=== PATIENT | male | born 1955 | race African-American/Black ===

== ENCOUNTER 2019-01-01 08:32 | Observation (INO) | payer BC ==
[2019-01-01] MEDS ORDERED: NA CHLORIDE 0.9% 1,000 ML ONE (09:12)
[2019-01-01] MEDS ORDERED: ONDANSETRON 4 MG/2 ML VIAL ONE (09:12)
[2019-01-01 09:32] LABS: Absolute Lymphocytes (CBC) 0.6 K/uL (0.7-4.9); Absolute Monocytes 0.4 K/uL (0.1-1.3); Basophils % 0.4 % (0-1.3); Eosinophils % 2.6 % (0-4.4); Hematocrit 43.6 % (39.6-49.0); Lymphocytes % 11.9 % (15.3-44.8); MPV 9.4 fL (7.6-11.3); Monocytes % 8.1 % (3.3-12.3); RBC Red Blood Cell Count 5.27 M/uL (4.33-5.43)
[2019-01-01 09:42] LABS: Protime INR 1.07
--- NOTE | 2019-01-01 09:46 | RAD REPORT ---
EXAM DESCRIPTION: CT - Stone Protocol - 01/01/2019 9:18 am CLINICAL HISTORY: Flank pain. FLANK PAIN COMPARISON: No comparisons TECHNIQUE: Axial images were obtained without oral or IV contrast. Lack of contrast limits solid org an and vascular assessment. The [id number] spans the entirety of the system partially obscuring uppermost abdomen and lung bases. Coronal reformatted images were obtained and reviewed. All CT scans are performed using dose optimization technique as appropriate and may include automated exposure control or mA/KV adjustment according to patient size. FINDINGS: The lower lung baires are clear. Small hiatal hernia. Imaged portions of the liver and spleen show no suspicious findings on non-contrast imaging. The panc reas and adrenal glands are normal. No pathologic lymphadenopathy in the abdomen or pelvis. Bilateral nephrolithiasis is present without hydronephrosis. No bowel obstruction, free air, free fluid or abscess. Normal appendix noted. No significant bony abnormality. Moderate lower lumbar degenerative changes. IMPRESSION: Bilateral nephrolithiasis without hydronephrosis.
[2019-01-01 09:51] LABS: ALT/SGPT 73 U/L (12-78); AST/SGOT 49 U/L (15-37); Albumin 3.8 g/dL (3.4-5.0); Alkaline Phosphatase 68 U/L (45-117); BUN Blood Urea Nitrogen 20 mg/dL (7-18); Bicarbonate 27 mmol/L (21-32); Bilirubin Direct 0.2 mg/dL (0-0.2); Bilirubin Total 0.8 mg/dL (0.2-1.0); Glucose Level 134 mg/dL (74-106); Lipase 183 U/L (73-393); Magnesium 1.8 mg/dL (1.8-2.4); NT PRO-BNP 691 pg/mL (<125); Potassium 4.4 mmol/L (3.5-5.1); Protein, Total 7.4 g/dL (6.4-8.2); Sodium Level 141 mmol/L (136-145); Troponin (Emerg Dept Use Only) < 0.02 ng/mL (0.0-0.045)
--- NOTE | 2019-01-01 10:35 | ER ---
Nurse's Notes [facility] Name: Toby Bella Age: 63 yrs Sex: Male : 1955 Arrival Date: 01/01/2019 Time: 08:35 Bed 20 Private MD: Diagnosis: Vomiting;Abdominal tenderness;Headache;Essential (primary) hypertension;Unspecified combined systolic (congestive) and diastolic (congestive) heart failure;Unspecified kidney failure;Atrial fibrillation and flutter Presentation: 01/01 08:36 Presenting complaint: EMS states: Headache, body aches, sinus congestion, and hb productive cough with yellow sputum. On scene pt was diaphoretic, c/o dizziness, body aches, and right flank pain that radiates to right leg. VAN NEG. 161/94, HR 88, 97% on RA, BGL 130. Transition of care: patient was not received from another setting of care. Onset of symptoms was January 01, 2019. Risk Assessment: Do you want to hurt yourself or someone else? Patient reports no desire to harm self or others. Care prior to arrival: None. 08:36 Method Of Arrival: EMS: [facility] 08:36 Acuity: PRASAD 3 hb 08:50 Initial Sepsis Screen: Does the patient meet any 2 criteria? No. Patient's initial em sepsis screen is negative. Does the patient have a suspected source of infection? No. Patient's initial sepsis screen is negative. Historical: - Allergies: 08:40 Iodinated Contrast Media - IV Dye; hb - PMHx: 08:40 Hyperlipidemia; Diabetes - NIDDM; Hypertension; Peripheral Neuropathy; hb - Immunization history:: Adult Immunizations up to date. - Social history:: Smoking status: Patient/guardian denies using tobacco. - Ebola Screening: : No symptoms or risks identified at this time. - Family history:: not pertinent. Screenin:50 Abuse screen: Denies threats or abuse. Nutritional screening: No deficits noted. em Tuberculosis screening: No symptoms or risk factors identified. Fall Risk None identified. Assessment: 08:50 General: Appears in no apparent distress. uncomfortable, Behavior is calm, cooperative, em Denies fever. Pain: Complains of pain in posterior aspect of right lateral abdomen and anterior aspect of right lateral abdomen Pain currently is 7 out of 10 on a pain scale. Pain began 1 hour ago. Neuro: Level of Consciousness is awake, alert, obeys commands, Oriented to person, place, time, situation, Moves all extremities. Gait is steady, Speech is normal, Intact Reports dizziness, headache Denies weakness. Cardiovascular: Denies chest pain, shortness of breath, Heart tones S1 S2 present Capillary refill < 3 seconds Patient's skin is warm and dry. Rhythm is atrial fibrillation. Respiratory: Reports cough that is dry, Airway is patent Respiratory effort is even, unlabored, Respiratory pattern is regular, symmetrical, Breath sounds are clear bilaterally. GI: Abdomen is round non-distended, Bowel sounds present X 4 quads. Abd is soft X 4 quads Abdomen is tender to palpation in right upper quadrant and right lower quadrant Reports diarrhea, nausea, vomiting. : Denies burning with urination. Derm: Skin is intact, is healthy with good turgor, Skin is pink, warm \T\ dry. Musculoskeletal: Capillary refill < 3 seconds, Range of motion: intact in all extremities. 09:05 Reassessment: I agree with previous assessment. hb 09:42 Reassessment: Patient appears in no apparent distress at this time. Patient and/or em family updated on plan of care and expected duration. Pain level reassessed. Patient is alert, oriented x 3, equal unlabored respirations, skin warm/dry/pink. Patient states symptoms have improved. 10:32 Reassessment: pt report he does not want to take aspirin as ordered due to nose bleeds, em provider notified. 10:55 Reassessment: pt up for discharge, provider ordered head CT due to pt headache. em 12:20 Reassessment: Patient appears in no apparent distress at this time. Patient and/or em family updated on plan of care and expected duration. Pain level reassessed. Patient is alert, oriented x 3, equal unlabored respirations, skin warm/dry/pink. Dr. Dominguez at bedside. 13:02 Reassessment: Patient appears in no apparent distress at this time. Patient and/or em family updated on plan of care and expected duration. Pain level reassessed. Patient is alert, oriented x 3, equal unlabored respirations, skin warm/dry/pink. rates pain 4/10 in head Patient states feeling better. 13:25 Reassessment: nurse attempted to give report but was called by a DrAugusta for a procedure, em will attempt to give report later. Vital Signs: 08:38 BP 149 / 94; Pulse 93; Resp 20; Temp 98.4(TE); Pulse Ox 96% on R/A; Pain 7/10; hb 09:45 BP 123 / 87; Pulse 89; Resp 18; Pulse Ox 99% on R/A; em 11:00 BP 115 / 70; Pulse 88; Resp 16; Pulse Ox 98% on R/A; Pain 7/10; em 12:00 BP 146 / 87; Pulse 95; Resp 18; Pulse Ox 99% on R/A; em 13:03 BP 120 / 84; Pulse 97; Resp 18; Pulse Ox 99% on R/A; Pain 4/10; em ED Course: 08:35 Patient arrived in ED. hb 08:37 Leon Donato MD is Attending Physician. diomedes 08:38 Triage completed. hb 08:39 Arm band placed on. hb 08:42 Antolin Augustin LVN is Primary Nurse. em 08:50 Patient has correct armband on for positive identification. Bed in low position. Call em light in reach. Adult w/ patient. youth nutritional monitor on. Pulse ox on. NIBP on. 09:00 Initial lab(s) drawn, by me, sent to lab. Inserted saline lock: 22 gauge in right em antecubital area, using aseptic technique. Blood collected. 09:[address] bq 09:17 CT completed. Patient tolerated procedure well. Patient moved back from CT. mw3 09:19 CT Stone Protocol In Process Unspecified. EDMS 09:24 XRAY Chest (1 view) In Process Unspecified. EDMS 10:34 Ortiz Watkins MD is Referral Physician. diomedes 11:14 Head Brain Wo Cont CT In Process Unspecified. EDMS 11:14 CT completed. Patient tolerated procedure well. Patient moved back from CT. mw3 11:40 Angel Dominguez DO is Hospitalizing Provider. diomedes 13:50 No provider procedures requiring assistance completed. Patient admitted, IV remains in em place. Administered Medications: 09:13 Drug: NS 0.9% 500 ml Route: IV; Rate: bolus; Site: right antecubital; em 10:43 Follow up: IV Status: Completed infusion; IV Intake: 500ml em 09:13 Drug: NS 0.9% 1000 ml Route: IV; Rate: 125 ml/hr; Site: right antecubital; em 13:50 Follow up: IV Status: Infusion continued upon admission; IV Intake: 400ml em 09:13 Drug: Zofran 4 mg Route: IVP; Site: right antecubital; la1 10:43 Follow up: Response: No adverse reaction; Nausea is decreased em 10:42 Not Given (Patient Refused): Aspirin 81 mg PO once em Intake: 10:43 IV: 500ml; Total: 500ml. em 13:50 IV: 400ml; Total: 900ml. em Outcome: 10:34 Discharge ordered by . diomedes 11:43 Decision to Hospitalize by Provider. [facility] 13:51 Admitted to Tele accompanied by tech, via wheelchair, room 216, with chart, Report em called to MOHSEN Hernandez 13:51 Condition: good 13:51 Instructed on the need for admit, Demonstrated understanding of instructions. 13:53 Patient left the ED. em Signatures: Dispatcher [employer] EDMS Leon Donato MD MD cha Quilty, Betty bq Munoz, Edgar, OYSTER UNLOADER OYSTER UNLOADER em Moisés Scott RN RN la1 Yanet Arriola RN RN Zoie Perez mw3 Corrections: (The following items were deleted from the chart) 08:39 08:36 Presenting complaint: EMS states: Headache, body aches, sinus congestion, and hb productive cough with yellow sputum. On scene pt was diaphoretic, c/o dizziness, body aches, and right flank pain that radiates to right leg. VAN NEG hb
--- NOTE | 2019-01-01 10:35 | EDPHYS ---
Physician Documentation [facility] Name: Toby Bella Age: 63 yrs Sex: Male : 1955 Arrival Date: 01/01/2019 Time: 08:35 Bed 20 Private MD: ED Physician Leon Donato HPI: 01/01 08:59 This 63 yrs old Black Male presents to ER via EMS with complaints of Headache, Body diomedes Aches, Sinus Congestion. 08:59 The patient presents with abdominal pain in the right upper quadrant, right lower diomedes quadrant, abdominal distention in the upper abdomen, in the lower abdomen. Onset: The symptoms/episode began/occurred just prior to arrival, this morning. The patient presents to the emergency department with nausea, vomiting, diarrhea, abdominal pain, of the anterior aspect of right lateral abdomen, posterior aspect of right lateral abdomen, right upper quadrant and right lower quadrant. Onset: The symptoms/episode began/occurred just prior to arrival, this morning. Possible causes: unknown. The symptoms are aggravated by nothing. The symptoms are alleviated by nothing. Associated signs and symptoms: The patient has no apparent associated signs or symptoms. The symptoms do not radiate. Associated signs and symptoms: Pertinent positives: nausea, vomiting, and diarrhea, nausea and vomiting. Historical: - Allergies: 08:40 Iodinated Contrast Media - IV Dye; hb - PMHx: 08:40 Hyperlipidemia; Diabetes - NIDDM; Hypertension; Peripheral Neuropathy; hb - Immunization history:: Adult Immunizations up to date. - Social history:: Smoking status: Patient/guardian denies using tobacco. - Ebola Screening: : No symptoms or risks identified at this time. - Family history:: not pertinent. ROS: 08:59 Constitutional: Negative for fever, chills, and weight loss, Eyes: Negative for injury, diomedes pain, redness, and discharge, ENT: Negative for injury, pain, and discharge, Neck: Negative for injury, pain, and swelling, Cardiovascular: Negative for chest pain, palpitations, and edema, Respiratory: Negative for shortness of breath, cough, wheezing, and pleuritic chest pain, Back: Negative for injury and pain, : Negative for injury, bleeding, discharge, and swelling, MS/Extremity: Negative for injury and deformity, Skin: Negative for injury, rash, and discoloration, Neuro: Negative for headache, weakness, numbness, tingling, and seizure, Psych: Negative for depression, anxiety, suicide ideation, homicidal ideation, and hallucinations, Allergy/Immunology: Negative for hives, rash, and allergies, Endocrine: Negative for neck swelling, polydipsia, polyuria, polyphagia, and marked weight changes, Hematologic/Lymphatic: Negative for swollen nodes, abnormal bleeding, and unusual bruising. 08:59 Abdomen/GI: Positive for abdominal pain, nausea and vomiting, abdominal cramps, abdominal distension, of the anterior aspect of right lateral abdomen and posterior aspect of right lateral abdomen. Exam: 08:59 Constitutional: This is a well developed, well nourished patient who is awake, alert, diomedes and in no acute distress. Head/Face: Normocephalic, atraumatic. Eyes: Pupils equal round and reactive to light, extra-ocular motions intact. Lids and lashes normal. Conjunctiva and sclera are non-icteric and not injected. Cornea within normal limits. Periorbital areas with no swelling, redness, or edema. ENT: Nares patent. No nasal discharge, no septal abnormalities noted. Tympanic membranes are normal and external auditory canals are clear. Oropharynx with no redness, swelling, or masses, exudates, or evidence of obstruction, uvula midline. Mucous membranes moist. Neck: Trachea midline, no thyromegaly or masses palpated, and no cervical lymphadenopathy. Supple, full range of motion without nuchal rigidity, or vertebral point tenderness. No Meningismus. Chest/axilla: Normal chest wall appearance and motion. Nontender with no deformity. No lesions are appreciated. Cardiovascular: Regular rate and rhythm with a normal S1 and S2. No gallops, murmurs, or rubs. Normal PMI, no JVD. No pulse deficits. Respiratory: Lungs have equal breath sounds bilaterally, clear to auscultation and percussion. No rales, rhonchi or wheezes noted. No increased work of breathing, no retractions or nasal flaring. Back: No spinal tenderness. No costovertebral tenderness. Full range of motion. Male : Normal genitalia with no discharge or lesions. Skin: Warm, dry with normal turgor. Normal color with no rashes, no lesions, and no evidence of cellulitis. MS/ Extremity: Pulses equal, no cyanosis. Neurovascular intact. Full, normal range of motion. Neuro: Awake and alert, GCS 15, oriented to person, place, time, and situation. Cranial nerves II-XII grossly intact. Motor strength 5/5 in all extremities. Sensory grossly intact. Cerebellar exam normal. Normal gait. Psych: Awake, alert, with orientation to person, place and time. Behavior, mood, and affect are within normal limits. 08:59 Abdomen/GI: Inspection: abdomen appears normal, Bowel sounds: normal, Palpation: Liver: no appreciated palpable abnormalities, Hernia: not appreciated. Vital Signs: 08:38 BP 149 / 94; Pulse 93; Resp 20; Temp 98.4(TE); Pulse Ox 96% on R/A; Pain 7/10; hb 09:45 BP 123 / 87; Pulse 89; Resp 18; Pulse Ox 99% on R/A; em 11:00 BP 115 / 70; Pulse 88; Resp 16; Pulse Ox 98% on R/A; Pain 7/10; em 12:00 BP 146 / 87; Pulse 95; Resp 18; Pulse Ox 99% on R/A; em 13:03 BP 120 / 84; Pulse 97; Resp 18; Pulse Ox 99% on R/A; Pain 4/10; em MDM: 08:37 Patient medically screened. [facility] 09:02 Data reviewed: vital signs, nurses notes, lab test result(s), EKG, radiologic studies, [facility] CT scan, plain films. 01/01 08:58 Order name: Basic Metabolic Panel; Complete Time: 09:59 [facility] 01/01 08:58 Order name: CBC with Diff; Complete Time: 09:59 [facility] 01/01 08:58 Order name: LFT's; Complete Time: 09:59 [facility] 01/01 08:58 Order name: Magnesium; Complete Time: 09:59 [facility] 01/01 08:58 Order name: NT PRO-BNP; Complete Time: 09:59 [facility] 01/01 08:58 Order name: PT-INR; Complete Time: 09:59 [facility] 01/01 08:58 Order name: Troponin (emerg Dept Use Only); Complete Time: 09:59 [facility] 01/01 08:58 Order name: XRAY Chest (1 view); Complete Time: 11:35 [facility] 01/01 08:58 Order name: Lipase; Complete Time: 09:59 [facility] 01/01 08:58 Order name: CT Stone Protocol; Complete Time: 09:59 [facility] 01/01 08:58 Order name: Urine Culture [facility] 01/01 08:58 Order name: Influenza Screen (a \T\ B); Complete Time: 09:59 [facility] 01/01 09:10 Order name: TSH [facility] 01/01 10:36 Order name: Urine Dipstick--Ancillary (enter results) 01/01 08:58 Order name: EKG; Complete Time: 08:59 [facility] 01/01 08:58 Order name: Cardiac monitoring; Complete Time: 09:14 [facility] 01/01 08:58 Order name: EKG - Nurse/Tech; Complete Time: 09:14 [facility] 01/01 08:58 Order name: IV Saline Lock; Complete Time: 09:14 [facility] 01/01 08:58 Order name: Labs collected and sent; Complete Time: 09:14 [facility] 01/01 08:58 Order name: O2 Per Protocol; Complete Time: 09:14 [facility] 01/01 08:58 Order name: O2 Sat Monitoring; Complete Time: 09:14 [facility] 01/01 08:58 Order name: Urine Dipstick-Ancillary (obtain specimen); Complete Time: 10:57 [facility] 01/01 10:56 Order name: Head Brain Wo Cont CT; Complete Time: 11:35 em Administered Medications: 09:13 Drug: NS 0.9% 500 ml Route: IV; Rate: bolus; Site: right antecubital; em 10:43 Follow up: IV Status: Completed infusion; IV Intake: 500ml em 09:13 Drug: NS 0.9% 1000 ml Route: IV; Rate: 125 ml/hr; Site: right antecubital; em 13:50 Follow up: IV Status: Infusion continued upon admission; IV Intake: 400ml em 09:13 Drug: Zofran 4 mg Route: IVP; Site: right antecubital; la1 10:43 Follow up: Response: No adverse reaction; Nausea is decreased em 10:42 Not Given (Patient Refused): Aspirin 81 mg PO once em Disposition: 01/01/19 11:43 Hospitalization ordered by Angel Dominguez for Observation. Preliminary diagnosis are Vomiting, Abdominal tenderness, Headache, Essential (primary) hypertension, Unspecified combined systolic (congestive) and diastolic (congestive) heart failure, Unspecified kidney failure, Atrial fibrillation and flutter. - Bed requested for Telemetry/MedSurg (observation). - Status is Observation. em - Condition is Fair. - Problem is new. - Symptoms have improved. UTI on Admission? No Signatures: Dispatcher [employer] EDMS Deepti Milligan Corey, MD MD cha Munoz, Edgar, RAIL CAR WELDER RAIL CAR WELDER em Moisés Scott RN RN la1 Yanet Arriola RN MOHSEN hb Corrections: (The following items were deleted from the chart) 11:40 10:34 01/01/2019 10:34 Discharged to Home. Impression: Vomiting; Diarrhea, unspecified; diomedes Type 2 diabetes mellitus; Atrial fibrillation and flutter; Unspecified kidney failure - renal insufficency; Essential (primary) hypertension. Condition is Stable. Discharge Instructions: Food Choices to Help Relieve Diarrhea, Adult, Type 2 Diabetes Mellitus, Diagnosis, Adult, Diarrhea, Adult, Nausea and Vomiting, Adult, Nausea and Vomiting, Adult, [id number], Diarrhea, Adult, [id number], Aspirin and Your Heart, Chronic Kidney Disease, Adult, [place]-[id number], Type 2 Diabetes Mellitus, Diagnosis, Adult, [id number], Atrial Fibrillation, [id number]. Prescriptions for Pepcid 20 mg Oral Tablet - take 1 tablet by ORAL route every 12 hours for 10 days; 20 tablet, Zofran 4 mg Oral Tablet - take 1 tablet by ORAL route every 12 hours As needed; 20 tablet. and Forms are Medication Reconciliation Form, Thank You Letter, Antibiotic Education, Prescription Opioid Use. Follow up: Private Physician; When: 2 - 3 days; Reason: Recheck today's complaints, Continuance of care, Re-evaluation by your physician. Follow up: Ortiz Watkins; When: 2 - 3 days; Reason: Recheck today's complaints, Re-evaluation by your physician. Problem is new. Symptoms have improved. diomedes 13:11 11:43 Hospitalization Ordered by Angel Dominguez DO for Observation. Preliminary bd diagnosis is Vomiting; Abdominal tenderness; Headache; Essential (primary) hypertension; Unspecified combined systolic (congestive) and diastolic (congestive) heart failure; Unspecified kidney failure; Atrial fibrillation and flutter. Bed requested for Telemetry/MedSurg (observation). Status is Observation. Condition is Fair. Problem is new. Symptoms have improved. UTI on Admission? No. diomedes 13:53 13:11 01/01/2019 11:43 Hospitalization Ordered by Angel Dominguez DO for Observation. em Preliminary diagnosis is Vomiting; Abdominal tenderness; Headache; Essential (primary) hypertension; Unspecified combined systolic (congestive) and diastolic (congestive) heart failure; Unspecified kidney failure; Atrial fibrillation and flutter. Bed requested for Telemetry/MedSurg (observation). Status is Observation. Condition is Fair. Problem is new. Symptoms have improved. UTI on Admission? No. bd
--- NOTE | 2019-01-01 11:31 | RAD REPORT ---
EXAM DESCRIPTION: CT - Head Brain Wo Cont - 01/01/2019 11:14 am CLINICAL HISTORY: HEADACHE COMPARISON: No comparisons TECHNIQUE: All CT scans are performed using dose optimization technique as appropriate and may inclu de automated exposure control or mA/KV adjustment according to patient size. FINDINGS: No intracranial hemorrhage, hydrocephalus or extra-axial fluid collection.No areas of brai n edema or evidence of midline shift. The paranasal sinuses and mastoids are clear. The calvarium is intact. IMPRESSION: No acute intracranial abnormality.
--- NOTE | 2019-01-01 11:32 | RAD REPORT ---
EXAM DESCRIPTION: RAD - Chest Single View - 01/01/2019 9:24 am CLINICAL HISTORY: Cough;Pain Chest pain. COMPARISON: No comparisons FINDINGS: Portable technique limits examination quality. Mild interstitial pulmonary edema seen. Heart is mildly enlarged in size. No displaced fractures. IMPRESSION: Mild CHF versus volume overload pattern.
[2019-01-01 12:27] LABS: Urine Blood NEGATIVE (NEG); Urine Glucose NEGATIVE (NEG); Urine Protein 1+ (NEG)
--- NOTE | 2019-01-01 12:42 | P.HP ---
Certification for Inpatient Patient admitted to: Observation With expected LOS: <2 Midnights Patient will require the following post-hospital care: None Practitioner: I am a practitioner with admitting privileges, knowledge of patient current condition, hospital course, and medical plan of care. Services: Services provided to patient in accordance with Admission requirements found in Title 42 Section 412.3 of the Code of Federal Regulations Patient History Date of Service: 01/01/19 Primary Care Provider: Dr. Lam Reason for admission: Disorientation, dizziness, headache History of Present Illness: 63-year-old male presented to the emergency room by EMS. Patient is a poor historian. He reports that he was seen by his PCP early this week. He was given multiple medications for arthritis. This included Mobic, baclofen, and Neurontin. When he took the 3 medications he started to have some headaches, dizziness and disorientation. He did not take it the following day but then took it again today. When he went to work coworkers mentioned that he was disoriented. He had dizziness and lightheadedness as well. She denied any chest pain, shortness of breath. He did report some abdominal pain but mild. Some nausea noted. He was seen by EMT and sent to the ER for further evaluation. In the ER patient evaluated. Patient found to have AFib. Patient reports a history of irregular heartbeat but not taking any medication for this. Blood pressure slightly elevated. White count 5.2, he will 14. Platelet count of 210. Sodium 141, potassium 4.4, BUN of 20, creatinine 1.3 with a GFR 64. Glucose 134. Chest x-ray showed possible mild CHF. CT abdomen showed bilateral nephrolithiasis without hydronephrosis. Head CT unremarkable. EKG showed atrial fibrillation, rate controlled. Patient was admitted for further evaluation When I saw the patient the ER, he reported that he was feeling slightly better. Patient with history of diabetes, hypertension, neuropathy. He does report a history of irregular heartbeat but not taking any specific medications including anti coagulation therapy. It appears that he has not seen a heart doctor in the past. Home medications list reviewed: Yes - Past Medical/Surgical History Diabetic: Yes -: Diabetes mellitus type 2 -: Hypertension -: Peripheral vascular disease -: Neuropathy Past Surgical History: Patient denies surgical history Psychosocial/ Personal History: Patient is single. He has multiple children. He currently works. - Family History Family History: Reviewed- Non-Contributory - Social History Smoking Status: Unknown if ever smoked Alcohol use: No CD- Drugs: No Caffeine use: Yes Place of Residence: Home Review of Systems General: Weakness, As per HPI Eyes: Unremarkable ENT: Unremarkable Respiratory: As per HPI Cardiovascular: Light Headedness, As per HPI Gastrointestinal: Nausea, Abdominal Pain, As per HPI Genitourinary: Unremarkable Musculoskeletal: Unremarkable Integumentary: Unremarkable Neurological: As per HPI Lymphatics: Unremarkable Physical Examination - Physical Exam General: Alert, In no apparent distress, Oriented x3, Cooperative HEENT: Atraumatic, Normocephalic, PERRLA, Mucous membr. moist/pink Neck: Supple, No Thyromegaly Respiratory: Clear to auscultation bilaterally, Normal air movement Cardiovascular: Abnormal pulses (AFib, rate controlled) Gastrointestinal: Normal bowel sounds, Soft and benign, Non-distended, No tenderness, No masses, No rebound, No guarding Musculoskeletal: No erythema, No tenderness, No warmth Integumentary: No tenderness/swelling, No erythema, No warmth, No cyanosis Neurological: Normal speech, Normal strength at 5/5 x4 extr, Normal tone, Normal affect - Studies Laboratory Data (last 24 hrs) 01/01/19 09:00: PT 12.6 H, INR 1.07 01/01/19 09:00: WBC 5.2, Hgb 14.3, Hct 43.6, Plt Count 210 01/01/19 09:00: Sodium 141, Potassium 4.4, BUN 20 H, Creatinine 1.35 H, Glucose 134 H, Magnesium 1.8, Total Bilirubin 0.8, AST 49 H, ALT 73, Alkaline Phosphatase 68, Lipase 183 Microbiology Data (last 24 hrs): 01/01/19 09:05 Nasopharnyx Influenza Type A Antigen Screen - Final 01/01/19 09:05 Nasopharnyx Influenza Type B Antigen Screen - Final Assessment and Plan - Plan Impression: Disorientation, presyncope likely related to atrial fibrillation, acute versus chronic Suspect chronic CHF likely diastolic Hypertension Diabetes mellitus type 2 Nausea and epigastric pain likely related to GERD Diabetic neuropathy with arthritis Suspect acute on chronic renal disease, stage II Plan: Disorientation, presyncope likely related to atrial fibrillation, acute versus chronic: Suspect disorientation and presyncope likely related to atrial fibrillation. Patient reports a history of irregular heartbeat. Patient is a poor historian, therefore patient likely with chronic atrial fibrillation. Rate is controlled. Will start Lovenox at 1 milligram/kilogram subcu twice daily, renally adjusted. Will also start metoprolol for rate control. Will order echocardiogram, carotid Doppler and stroke protocol MRI to further monitor in evaluate. Will consult cardiology for further recommendation. Will monitor on telemetry. Will provide aspirin, Lipitor. Will need to rule out other neurological causes. Will discontinue Mobic, baclofen and Neurontin as this exacerbated his symptoms. Will have speech, occupational therapy and physical therapy assessed patient. Anticipate discharge as early as tomorrow if significantly improved. I will turn the service over to the hospitalist team. I will go over the plan of care with them. Suspect chronic CHF likely diastolic: Chest x-ray showed possible mild CHF. Patient likely with underlying diastolic dysfunction. Will start low-dose Lasix orally. Will check echocardiogram. Will continue to reassess Hypertension: Will hold lisinopril. Will start beta-lalo for his atrial fibrillation. Will monitor and adjust appropriately. Diabetes mellitus type 2: Will check A1c. Will continue Accu-Cheks and sliding scale. Nausea and epigastric pain likely related to GERD: Suspect patient having underlying GERD. Will discontinue Mobic, baclofen and Neurontin. Will start Pepcid. Diabetic neuropathy with arthritis: Will provide tramadol as needed for pain. Will continue to hold Mobic, baclofen and Neurontin. Suspect acute on chronic renal disease, stage II: Will check renal ultrasound. Will monitor electrolytes. Discharge Plan: Home Plan to discharge in: 24 Hours - Advance Directives Does patient have a Living Will: No Does patient have a Durable POA for Healthcare: No - Code Status/Comfort Care Code Status Assessed: Yes (Patient is full code.) Time Spent Managing Pts Care (In Minutes): 55
[2019-01-01] MEDS ORDERED: HYDROCODONE/APAP 7.5/325 MG TAB PO PRN (14:29)
[2019-01-01] MEDS ORDERED: GLUCAGON 1 MG/VIAL IM PRN (14:29)
[2019-01-01] MEDS ORDERED: ONDANSETRON 4 MG/2 ML VIAL IV PRN (14:29)
[2019-01-01] MEDS ORDERED: TRAMADOL HCL 50 MG TAB PO PRN (14:29)
[2019-01-01] MEDS ORDERED: D50W 25 GM/50 ML SYRINGE IV PRN (14:29)
[2019-01-01] MEDS ORDERED: MORPHINE 2 MG/ML SYR IV PRN (14:29)
[2019-01-01] MEDS ORDERED: ACETAMINOPHEN 500 MG TAB PO PRN (14:29)
[2019-01-01] MEDS ORDERED: NITROGLYCERIN 0.4 MG/TAB SL PRN (14:29)
[2019-01-01 15:35] LABS: CKMB Creatine Kinase MB 3.8 ng/mL (0.3-3.6); Creatine Phosphokinase 387 U/L (39-308); Troponin I < 0.02 ng/mL (0.0-0.045); Uric Acid 7.2 mg/dL (3.5-7.2)
[2019-01-01] MEDS: METOPROLOL TAR 25 MG TAB PO SCH (15:49)
[2019-01-01] MEDS: Enoxaparin 120 MG/0.8 ML SYR SQ SCH ×2 (15:50→21:48)
[2019-01-01] MEDS: FAMOTIDINE 20 MG TAB PO SCH ×2 (15:50→21:48)
[2019-01-01] MEDS: INSULIN -REGULAR HUMAN 50 UNIT/0.5 ML ML SQ SCH ×2 (16:30→20:57)
[2019-01-01] MEDS ORDERED: INSULIN -REGULAR HUMAN 50 UNIT/0.5 ML ML SQ SCH (16:30)
[2019-01-01] MEDS: FUROSEMIDE 20 MG TABLET PO SCH (17:17)
[2019-01-01 18:12] LABS: Urine Appearance CLEAR; Urine Bilirubin NEGATIVE (NEG); Urine Blood NEGATIVE (NEG); Urine Color YELLOW; Urine Glucose NEGATIVE (NEG); Urine Protein NEGATIVE (NEG); Urine Specific Gravity 1.025 (1.005-1.030); Urine Urobilinogen 0.2 mg/dL (0.2-1.0)
[2019-01-01 18:13] LABS: Urine Microscopic Reflex NO UMIC
--- NOTE | 2019-01-01 18:33 | RAD REPORT ---
EXAM DESCRIPTION: - CP - 01/01/2019 5:19 pm CLINICAL HISTORY: A. fib Syncope, headache COMPARISON: No comparisons TECHNIQUE: Real-time sonographic evaluation of both carotid systems was performed. Doppler interroga tion was performed with waveform tracing bilaterally. FINDINGS: Normal high resistance waveforms are noted in both external carotid arteries. The common c arotid arteries and internal carotid arteries show normal low resistance waveforms. No significant plaque formation is seen. Peak systolic and end diastolic velocity values and the ICA/ CCA ratios are in the non-hemodynamically significant range. Antegrade flow seen in both vertebral arteries. IMPRESSION: No significant atherosclerotic changes noted. No evidence of a hemodynamically significant stenosis.
[2019-01-01] MEDS ORDERED: ATORVASTATIN 40 MG TAB PO SCH (21:00)
[2019-01-01 22:45] LABS: CKMB Creatine Kinase MB 3.3 ng/mL (0.3-3.6); Creatine Phosphokinase 323 U/L (39-308); Troponin I < 0.02 ng/mL (0.0-0.045)
[2019-01-02] MEDS: METOPROLOL TAR 25 MG TAB PO SCH (05:45)
[2019-01-02 06:24] LABS: Absolute Monocytes 0.7 K/uL (0.1-1.3); Absolute Neutrophil 2.2 K/uL (1.8-8.0); Basophils % 0.5 % (0-1.3); Eosinophils % 0.5 % (0-4.4); Hematocrit 45.1 % (39.6-49.0); Lymphocytes % 26.5 % (15.3-44.8); MPV 9.6 fL (7.6-11.3); Monocytes % 16.7 % (3.3-12.3); RBC Red Blood Cell Count 5.47 M/uL (4.33-5.43)
[2019-01-02 06:41] LABS: Magnesium 1.9 mg/dL (1.8-2.4); Potassium 3.7 mmol/L (3.5-5.1)
[2019-01-02] MEDS: INSULIN -REGULAR HUMAN 50 UNIT/0.5 ML ML SQ SCH ×2 (07:30→11:30)
[2019-01-02 07:37] LABS: Blood Morphology Comment NOT SEEN (NOT SEEN); Platelet Estimate ADEQ; Urine White Blood Cell Casts OK
--- NOTE | 2019-01-02 08:44 | RAD REPORT ---
EXAM DESCRIPTION: MRI - Brain Wo Cont - 01/02/2019 8:37 am CLINICAL HISTORY: Atrial fibrillation, syncope, stroke-like symptoms COMPARISON: CT head January 01 TECHNIQUE: Sagittal T1-weighted images were obtained along with axial PD, heavily T2-weighted and T2 -FLAIR images. Axial DWI and ADC mapping sequences were also obtained along with coronal heavily T2-w eighted images. FINDINGS: No intracranial hemorrhage, mass or acute infarction. There is no edema or shift of midlin e structures. No cortical edema or sulcal effacement. Patient has no significant volume loss. Scatter ed areas of increased T2/IR signal seen in the cerebral hemispheres. Basal ganglia and brainstem gene rally spared. Cerebellum is spared. Ventricles are normal. Farfan-matter/white matter junction is prese rved. Signal voids are seen as a normal finding in the major intracranial vessels. No globe or orbital content abnormality seen. No sella or supra sella abnormality. Mastoid air cells and paranasal sinuses are clear. IMPRESSION: No acute infarction. No mass, hemorrhage or other acute intracranial finding. Mild chronic ischemic change throughout the cerebral white matter.
--- NOTE | 2019-01-02 08:48 | RAD REPORT ---
EXAM DESCRIPTION: MRI - MRA Head Wo Cont - 01/02/2019 8:37 am CLINICAL HISTORY: Syncope, stroke-like symptoms COMPARISON: MRI brain same date, CT head January 01 TECHNIQUE: Axial and coronal 3D [id number] image acquisition was performed. 3D rotational images were generated with source and reconstruction images reviewed. Horizontal and vertical axis rotation al views generated using MIP protocol. FINDINGS: No aneurysm or vascular malformation identified. No occlusive changes. Mild to moderate at herosclerotic changes are present in the A1 segment of each anterior cerebral artery. Mild atheroscle rotic changes are seen in the far peripheral branches of the middle cerebral arteries. No basilar artery abnormality. No significant disease of the posterior cerebral arteries. Right verte bral artery is very small. This has the appearance of a normal variant and dissection is not suspecte d. IMPRESSION: Mild to moderate atherosclerotic changes in the proximal aspect of each anterior cerebra l artery. Minimal atherosclerotic changes in the far peripheral branches of the bilateral middle cerebral arter ies.
[2019-01-02] MEDS ORDERED: ALLOPURINOL 100 MG TAB PO SCH (09:00)
[2019-01-02] MEDS ORDERED: POTASSIUM CL SA 10 MEQ TAB PO ONE (09:00)
[2019-01-02] MEDS ORDERED: ASPIRIN EC 81 MG TAB PO SCH (09:00)
[2019-01-02] MEDS: FAMOTIDINE 20 MG TAB PO SCH (09:38)
[2019-01-02] MEDS: FUROSEMIDE 20 MG TABLET PO SCH (09:38)
[2019-01-02] MEDS: Enoxaparin 120 MG/0.8 ML SYR SQ SCH (09:39)
--- NOTE | 2019-01-02 09:57 | RAD REPORT ---
EXAM DESCRIPTION: MRI - MRA Neck W/Wo Cont - 01/02/2019 8:37 am CLINICAL HISTORY: Syncope, atrial fibrillation, stroke-like symptoms COMPARISON: CT head January 01, MRI/MRA head January 02 TECHNIQUE: Axial and coronal 3D [id number] image acquisition was performed. 3D rotational images were generated with source and reconstruction images reviewed. Horizontal and vertical axis rotation al views generated using MIP protocol. FINDINGS: Aortic arch is 3 vessel origin with no stenosis or significant finding at great vessel margareth gin. Left vertebral artery origin is normal. Right vertebral artery is also normal at the origin. No focal or diffuse narrowing no dissection changes of the bilateral common carotid or internal carot id artery's. Left vertebral artery is dominant with no focal abnormality. Right vertebral artery is much smaller a s a normal variant. Venous contamination and motion further limit right vertebral artery assessment. An acute right vertebral artery finding is not suspected. IMPRESSION: MRA neck imaging showing no significant or suspicious finding.
--- NOTE | 2019-01-02 11:59 | ECHO ---
HEIGHT: 5 ft 5 in WEIGHT: 268 lb 0 oz DATE OF STUDY: 01/02/[address]: Angel Dominguez DO 2-DIMENSIONAL: YES M.MODE: YES DOPPLER: YES COLOR FLOW: YES TDS: NO PORTABLE: NO DEFINITY: NO BUBBLE STUDY: NO DIAGNOSIS: PRESYNCOPE, ATRIAL FIBRILLATION CARDIAC HISTORY: CATHERIZATION: NO SURGERY: NO PROSTHETIC VALVE: NO PACEMAKER: NO MEASUREMENTS (cm) DIASTOLIC (NORMALS) SYSTOLIC (NORMALS) IVSd 1.0 (0.6-1.2) LA Diam 3.7 (1.9-4.0) LVEF 63% LVIDd 5.0 (3.5-5.7) LVIDs 3.3 (2.0-3.5) %FS 34% LVPWd 1.1 (0.6-1.2) Ao Diam 2.9 (2.0-3.7) 2 DIMENSIONAL ASSESSMENT: RIGHT ATRIUM: NORMAL LEFT ATRIUM: NORMAL RIGHT VENTRICLE: NORMAL LEFT VENTRICLE: NORMAL TRICUSPID VALVE: NORMAL MITRAL VALVE: NORMAL PULMONIC VALVE: NORMAL AORTIC VALVE: NORMAL PERICARDIAL EFFUSION: NONE AORTIC ROOT: NORMAL LEFT VENTRICULAR WALL MOTION: NORMAL DOPPLER/COLOR FLOW: NORMAL COMMENTS: NORMAL 2D ECHOCARDIOGRAM WITH DOPPLER. TECHNOLOGIST: Lynn EASLEY
--- NOTE | 2019-01-02 16:24 | CON ---
Mr. Bella came to our hospital. He thinks he had a medication reaction to gabapentin. He took it and then he felt lightheaded, dizzy, weak all over, could not stand up, fell. Since he has been i n our hospital, he has been in atrial fibrillation. Mr. Bella is not aware of having atrial fib rillation before. He has had vascular studies of the carotid and brain arteries looking for reasons for a stroke. There is no significant stenosis there both by MRI, MRA, and Doppler ultrasound. He d oes not have a focal neurological deficit nor a stroke according to the MRI of the brain. The patien t has longstanding hypertension. He has degenerative joint disease and diabetes. He takes meloxicam , pravastatin, baclofen, and glipizide. He has never had myocardial infarction, stroke, or any vascu lar surgery. He has had peripheral vascular disease, but apparently no interventions, at least that the patient remembers. He denies tobacco and alcohol use. Physical Examination: Vital Signs: 5 feet 5 inches, 268 pounds. General: Obese, alert, oriented, pleasant, not in distress. Lungs: Clear. Heart: Irregularly irregular. Heart rate during the exam was in the 80s and 90s. The heart reveals no significant murmur or gallop. Lungs: Clear. Abdomen: Soft. Extremities: No edema. I believe the patient should be on anticoagulants. He should stop use of aspirin and nonsteroidal an ti-inflammatory drugs. He has received enoxaparin as of today, but we could switch him to either Amy andrew or Xarelto and go for rate control. After he has had his anticoagulation for a few weeks, we co kennyd consider bringing him into the hospital for a cardioversion or if he is feeling fine with rate co ntrol and anticoagulation, may be just pursue that as the goal. Cardioverting him right now would no t be ovalle. He has probably been in atrial fibrillation for a few weeks, at least as far as I can tell according to his symptoms. SH/MODL Voice ID: [id number] Report ID: [id number]
[2019-01-02] MEDS ORDERED: RIVAROXABAN 20 MG TABLET PO SCH (17:00)
--- NOTE | 2019-01-02 17:24 | P.SSS ---
Patient History Date of Service: 01/02/19 Primary Care Provider: Dr. Lam Reason for admission: Disorientation, dizziness, headache History of Present Illness: 63-year-old male presented to the emergency room by EMS. Patient is a poor historian. He reports that he was seen by his PCP early this week. He was given multiple medications for arthritis. This included Mobic, baclofen, and Neurontin. When he took the 3 medications he started to have some headaches, dizziness and disorientation. He did not take it the following day but then took it again today. When he went to work coworkers mentioned that he was disoriented. He had dizziness and lightheadedness as well. She denied any chest pain, shortness of breath. He did report some abdominal pain but mild. Some nausea noted. He was seen by EMT and sent to the ER for further evaluation. In the ER patient evaluated. Patient found to have AFib. Patient reports a history of irregular heartbeat but not taking any medication for this. Blood pressure slightly elevated. White count 5.2, he will 14. Platelet count of 210. Sodium 141, potassium 4.4, BUN of 20, creatinine 1.3 with a GFR 64. Glucose 134. Chest x-ray showed possible mild CHF. CT abdomen showed bilateral nephrolithiasis without hydronephrosis. Head CT unremarkable. EKG showed atrial fibrillation, rate controlled. Patient was admitted for further evaluation When I saw the patient the ER, he reported that he was feeling slightly better. Patient with history of diabetes, hypertension, neuropathy. He does report a history of irregular heartbeat but not taking any specific medications including anti coagulation therapy. It appears that he has not seen a heart doctor in the past. Allergies No Known Allergies Allergy (Unverified 01/01/19 14:28) Home Medications: Baclofen [Lioresal*] 5 mg PO BIDP PRN 01/01/19 Gabapentin [Neurontin*] 200 mg PO TID* 01/01/19 Meloxicam [Mobic] 7.5 mg PO BID 01/01/19 Pravastatin Sodium [Pravachol] 40 mg PO DAILY 01/01/19 glipiZIDE [Glipizide] 5 mg PO DAILY 01/01/19 Metoprolol Tartrate [Lopressor*] 25 mg PO BID 6AM 6PM #60 tab 01/02/19 Rivaroxaban [Xarelto] 20 mg PO DAILY #30 tablet 01/02/19 - Past Medical/Surgical History Has patient received pneumonia vaccine in the past: No Diabetic: Yes -: Diabetes mellitus type 2 -: Hypertension -: Peripheral vascular disease -: Neuropathy Psychosocial/ Personal History: Patient is single. He has multiple children. He currently works. - Family History Family History: Reviewed- Non-Contributory - Social History Smoking Status: Unknown if ever smoked Alcohol use: No CD- Drugs: No Caffeine use: Yes Place of Residence: Home Review of Systems 10-point ROS is otherwise unremarkable Physical Examination - Vital Signs Temperature: 97.3 F Blood Pressure: 130/85 Pulse: 69 Respirations: 15 Pulse Ox (%): 96 - Physical Exam General: Alert, In no apparent distress HEENT: Atraumatic, PERRLA, Mucous membr. moist/pink, EOMI, Sclerae nonicteric Neck: Supple, 2+ carotid pulse no bruit, No LAD, Without JVD or thyroid abnormality Respiratory: Clear to auscultation bilaterally, Normal air movement Cardiovascular: Regular rate/rhythm, Normal S1 S2 Gastrointestinal: Normal bowel sounds, No tenderness Musculoskeletal: No tenderness Integumentary: No rashes Neurological: Normal gait, Normal speech, Normal strength at 5/5 x4 extr, Normal tone, Normal affect Lymphatics: No axilla or inguinal lymphadenopathy - Diagnosis (Problem(s)) (1) Syncopal episodes Status: Acute Qualifiers: Syncope type: unspecified Qualified Code(s): R55 - Syncope and collapse (2) Afib Status: Chronic Qualifiers: Atrial fibrillation type: chronic Qualified Code(s): I48.2 - Chronic atrial fibrillation (3) Polypharmacy Status: Chronic Treatment Summary: Overall during the hospital stay patient stable Patient was initially admitted to the hospital for having dizziness and syncopal like episode after he started taking medication that he was prescribed for his arthritis. Patient was asked to hold his Mobic diclofenac along with Neurontin that was he was started with. His symptoms did resolve while here in the hospital. Patient had extensive workup done for his syncopal episode. Patient had echocardiogram done along with MRI of the brain, MRA of the neck carotid Dopplers. Echocardiogram was within normal limits along with MRI and MRA. Cardiology was consulted for possible atrial fibrillation on the EKG. Cardiology recommended the patient be continued on a beta-lalo along with anti coagulation with Eliquis. Patient was observed here in the hospital for another 48 hr and thus was discharged home once his symptoms had resolved. No other complaints to offer here in the hospital patient was asked to follow up with cardiology in about 1-2 days post discharge. Patient was given prescription for LS was along with beta-lalo to be taken home. - Disposition Condition: GOOD Patient Discharge Instructions: Please f.u with cardiology in 1 to 2 week post discharge. New medication. Metoprolol 25mg BID. xarelto 20mg Daily Diet: Regular Activity: Ad tim
--- NOTE | 2019-01-03 11:36 | EKG ---
Test Date: 2019-01-01 Test Time: 15:20:01 Cook Syrup Maker: ALEXANDRU Tyler MEASUREMENT RESULTS: Intervals: Rate: 98 RI: QRSD: 84 QT: 326 QTc: 416 [place]: P: RI: QRS: -29 T: 35 INTERPRETIVE STATEMENTS: Atrial fibrillation Possible Inferior infarct, age undetermined Possible Anterior infarct, age undetermined Abnormal ECG No previous ECG available for comparison Electronically Signed On 01-02-19 10:51:29 CDT by Ortiz Watkins
--- NOTE | 2019-01-03 11:38 | EKG ---
Test Date: 2019-01-01 Test Time: 09:08:01 Script Developer: GER MEASUREMENT RESULTS: Intervals: Rate: 84 TX: QRSD: 84 QT: 336 QTc: 397 [place]au: P: TX: QRS: 3 T: 56 INTERPRETIVE STATEMENTS: Atrial fibrillation Abnormal ECG No previous ECG available for comparison Electronically Signed On 01-02-19 10:52:56 CDT by Ortiz Watkins
== END 2019-01-02 15:05 | disposition home or self-care (01) ==
LOC: ER 08:32 → ERHOLD 12:20 → 2ND 13:48
PROVIDERS: ADMIT Family Medicine; ATTEND Family Medicine
DX: I48.2 Chronic atrial fibrillation (principal); R51 Headache; R55 Syncope and collapse; R42 Dizziness and giddiness; N20.0 Calculus of kidney; M19.90 Unspecified osteoarthritis, unspecified site; I10 Essential (primary) hypertension; E11.40 Type 2 diabetes mellitus with diabetic neuropathy, unspecified; I73.9 Peripheral vascular disease, unspecified; T50.905A Adverse effect of unspecified drugs, medicaments and biological substances, initial encounter
CPT/HCPCS: 36415; 70450; 70544; 70549; 70551; 71045; 74176; 76377; 80048; 80061; 80076; 81003; 82550; 82553; 82962; 83036; 83690; 83735; 83880; 84439; 84443; 84484; 84550; 85025; 85610; 87493; 87804; 93005; 93306; 93880; 96361; 96374; 97163; 99285; A9577; G0378; J1650; J2405; J7030

== ENCOUNTER 2019-08-26 17:11 | Emergency (ER) | payer BC, SELFPAY ==
--- NOTE | 2019-08-26 17:31 | RAD REPORT ---
EXAM DESCRIPTION: CT - Ct Stroke Brain Wo Cont - 08/26/2019 5:22 pm CLINICAL HISTORY: Left arm numbness COMPARISON: December 2018 TECHNIQUE: Computed axial tomography of the head was obtained. All CT scans are performed using dose optimization technique as appropriate and may include automated exposure control or mA/KV adjustment according to patient size. FINDINGS: An intracranial bleed is not seen . The ventricles are normal in caliber. No extra-axial fluid collection is noted. Fluid within the sinuses/ mastoids is not seen. IMPRESSION: No acute intracranial abnormality is seen. If patient's symptoms persist MRI of the bra in would be recommended. Tirso of the emergency room was notified at 5:26 p.m. August 26, 2019
--- NOTE | 2019-08-26 17:40 | ER ---
Nurse's Notes [facility] Name: Toby Bella Age: 64 yrs Sex: Male : 1955 Arrival Date: 08/26/2019 Time: 17:13 Bed 7 Private MD: Diagnosis: Cerebrovascular accident Presentation: 08/26 17:14 An acute neurological deficit is present. The charge nurse has been notified. Onset of hb symptoms was August 26, 2019 at 17:00. Risk Assessment: Do you want to hurt yourself or someone else? Patient reports no desire to harm self or others. Care prior to arrival: None. 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 Last known normal 1700. 17:15 Transition of care: patient was not received from another setting of care. hb 17:15 Method Of Arrival: Ambulatory hb 17:20 The patients blood glucose was checked before arriving to the hospital and was found to tr5 be normal. Initial Sepsis Screen: Does the patient meet any 2 criteria? No. Patient's initial sepsis screen is negative. Does the patient have a suspected source of infection? No. Patient's initial sepsis screen is negative. Triage Assessment: 17:00 Neuro: Reports paresthesias in left arm weakness in left arm. bp 19:32 The onset of the patients symptoms was August 26, 2019 at 17:00. General: Appears bp distressed, Behavior is anxious. Stroke Activation: Symptom onset < 3 hours Physician: Stroke Attending; Name: ; Notified At: ; Arrived At: Physician: Chief Stroke Resident; Name: ; Notified At: ; Arrived At: Physician: Stroke Resident; Name: ; Notified At: ; Arrived At: Physician: ED Attending; Name: ; Notified At: ; Arrived At: Physician: ED Resident; Name: ; Notified At: ; Arrived At: Historical: - Allergies: 17:30 Iodinated Contrast Media - IV Dye; hb - Home Meds: 17:30 Eliquis oral oral [Active]; Lisinopril Oral [Active]; Metformin Oral [Active]; hb - PMHx: 17:30 Diabetes - NIDDM; Hyperlipidemia; Hypertension; PERIPHERAL NEUROPATHY; hb - Immunization history:: Adult Immunizations up to date. - Social history:: Smoking status: Patient/guardian denies using tobacco. - Ebola Screening: : No symptoms or risks identified at this time. Screenin:20 Abuse screen: Denies threats or abuse. Nutritional screening: No deficits noted. tr5 Tuberculosis screening: No symptoms or risk factors identified. Fall Risk None identified. Assessment: 17:14 Reassessment: CODE STROKE CALLED, PT TO CT VIA WHEELCHAIR WITH YANET CONNOLLY. hb 17:20 VAN Scoring: Arm Drift: Minor drift Visual Disturbance: No visual disturbance noted. tr5 Aphasia: No aphasia noted. Neglect: No neglect noted. Patient has been NPO before screening. The patient is alert, and able to follow commands. The patient does not exhibit slurred or garbled speech. The patient is not exhibiting difficulty speaking. The patient does not exhibit difficulty understanding words. The patient is able to swallow own secretions with no drooling or need for suction. Patient tolerated one teaspoon of water. No drooling, immediate coughing, gurgling, or clearing of the throat was noted. The patient tolerated 90mL of water. No drooling, immediate coughing, gurgling, or clearing of the throat was noted. The patient passed the bedside swallow screening. Oral medications may be given as ordered. Contact Physician for further diet orders. Provider notified of bedside swallow screening results: Tirso Mejia NP. T-PA (Activase) Screening: Contraindications: Is the patient on Aspirin, Heparin, or Warfarin: Yes. 17:20 General: Appears in no apparent distress. Behavior is calm, cooperative. Pain: Denies tr5 pain. Neuro: Level of Consciousness is awake, alert, Oriented to person, place, Vocational Coordinator are weak on left Weakness in left arm(s) Gait is Speech is normal, Facial droop on left, Pupils are PERRLA, Intact. Cardiovascular: Heart tones present Capillary refill < 3 seconds Pulses are all present. Edema is absent. Rhythm is atrial fibrillation. Respiratory: Airway is patent. 17:20 GI: No signs and/or symptoms were reported involving the gastrointestinal system. : tr5 No signs and/or symptoms were reported regarding the genitourinary system. EENT: No signs and/or symptoms were reported regarding the EENT system. Derm: No signs and/or symptoms reported regarding the dermatologic system. Musculoskeletal: No signs and/or symptoms reported regarding the musculoskeletal system. 17:36 Reassessment: Decision to not give TPA at this time per KACIE Chahal after consulting ss with neuro as patient is currently taking Eliquis for anticoagulation therapy. 18:24 Reassessment: Patient appears in no apparent distress at this time. Patient and/or tr5 family updated on plan of care and expected duration. Pain level reassessed. Patient is alert, oriented x 3, equal unlabored respirations, skin warm/dry/pink. 19:30 Reassessment: EMS AT B/S FOR TRANSPORT. NO CHANGE IN PT NEURO STATUS. bp Vital Signs: 17:29 BP 186 / 129; Pulse 95; Resp 18; Temp 98.1; Pulse Ox 97% on R/A; Pain 0/10; hb 18:00 BP 159 / 119; Pulse 95; Resp 17; Pulse Ox 100% on R/A; tr5 18:24 BP 158 / 111; Pulse 90; Resp 17; Pulse Ox 98% on R/A; tr5 19:31 BP 149 / 104; Pulse 86; Resp 16; Pulse Ox 98% ; bp NIH Stroke Scale Scores: 17:20 NIHSS Score: 3 tr5 17:35 NIHSS Score: 2 pm1 ED Course: 17:13 Patient arrived in ED. as 17:14 Tirso Mejia, KACIE is PHCP. pm1 17:14 Preston Ortega MD is Attending Physician. pm1 17:17 Bryan Garcia, RN is Primary Nurse. tr5 17:20 Placed in gown. Bed in low position. Call light in reach. Side rails up X 1. tr5 17:22 CT Stroke Brain w/o Contrast In Process Unspecified. EDMS 17:28 Triage completed. hb 17:29 Arm band placed on right wrist. hb 17:35 Initial lab(s) drawn, by ak, sent to lab. Inserted saline lock: 20 gauge in right tr5 forearm, using aseptic technique. 17:48 Stroke CXR 1 View In Process Unspecified. EDMS 19:31 No provider procedures requiring assistance completed. Patient transferred, IV remains bp in place. Administered Medications: 18:16 Drug: Aspirin 325 mg Route: PO; tr5 19:33 Follow up: Response: No adverse reaction bp Outcome: 17:40 ER care complete, transfer ordered by . pm1 19:31 Transferred by ground EMS to [facility], [facility]. bp 19:31 Condition: stable 19:31 Instructed on the need for transfer. 19:33 Patient left the ED. bp NIH Stroke Scale - NIH Stroke Score Date: 08/26/2019 Time: 17:20 Total Score = 3 1a. Level of Consciousness (LOC) - 0(Alert) 1b. Level of Consciousness (LOC) (Year \T\ Age) - 0(Both) 1c. LOC Commands (Open \T\ Closes Eyes/Tail Dogger) - 0(Both) 2. Best Gaze (Lateral Gaze Paresis) - 0(Normal) 3. Visual Field Loss - 0(No visual loss) 4. Facial Palsy - 1(Minor Paralysis) 5a. Left Arm: Motor (10-second hold) - 2(Drift, some effort against gravity) 5b. Right Arm: Motor (10-second hold) - 0(No drift) 6a. Left Leg: Motor (5-second hold - always test supine) - 0(No drift) 6b. Right Leg: Motor (5-second hold - always test supine) - 0(No drift) 7. Limb Ataxia (finger/nose \T\ heel/perera - test with eyes open) - 0(Absent) 8. Sensory Loss (pinprick arms/legs/face) - 0(Normal) 9. Best Language: Aphasia (description/naming/reading) - 0(No aphasia) 10. Dysarthria (speech clarity - read or repeat words) - 0(Normal) 11. Extinction and Inattention (visual/tactile/auditory/spatial/personal) - 0(No abnormality) Initials: tr5 NIH Stroke Scale - NIH Stroke Score Date: 08/26/2019 Time: 17:35 Total Score = 2 1a. Level of Consciousness (LOC) - 0(Alert) 1b. Level of Consciousness (LOC) (Year \T\ Age) - 0(Both) 1c. LOC Commands (Open \T\ Closes Eyes/Tail Dogger) - 0(Both) 2. Best Gaze (Lateral Gaze Paresis) - 0(Normal) 3. Visual Field Loss - 0(No visual loss) 4. Facial Palsy - 0(Normal) 5a. Left Arm: Motor (10-second hold) - 2(Drift, some effort against gravity) 5b. Right Arm: Motor (10-second hold) - 0(No drift) 6a. Left Leg: Motor (5-second hold - always test supine) - 0(No drift) 6b. Right Leg: Motor (5-second hold - always test supine) - 0(No drift) 7. Limb Ataxia (finger/nose \T\ heel/perera - test with eyes open) - 0(Absent) 8. Sensory Loss (pinprick arms/legs/face) - 0(Normal) 9. Best Language: Aphasia (description/naming/reading) - 0(No aphasia) 10. Dysarthria (speech clarity - read or repeat words) - 0(Normal) 11. Extinction and Inattention (visual/tactile/auditory/spatial/personal) - 0(No abnormality) Initials: pm1 Signatures: Dispatcher [employer] EDCher Boswell Shelby, MOHSEN RN ss Tirso Mejia, KACIE TEACHING YOUNG pm1 Yanet Arriola RN RN Saleem Benavides RN RN bp Rodriguez, Tommie, RN RN tr5 Corrections: (The following items were deleted from the chart) 18:45 18:25 Neuro: tr5 tr5
--- NOTE | 2019-08-26 17:40 | EDPHYS ---
Physician Documentation [facility] Name: Toby Bella Age: 64 yrs Sex: Male : 1955 Arrival Date: 08/26/2019 Time: 17:13 Bed 7 Private MD: ED Physician Preston Ortega HPI: 08/26 17:25 This 64 yrs old Black Male presents to ER via Ambulatory with complaints of S/S of pm1 Possible Stroke. 17:25 The patient's problem is reported as paresthesias, in left upper extremity, weakness, pm1 in the left upper extremity. Onset: The symptoms/episode began/occurred at 17:00. Duration: The episode is continuous. Context: symptoms became apparent at 17:00. occurred while the patient was driving. The symptoms are alleviated by nothing. The symptoms are aggravated by nothing. Associated signs and symptoms: Pertinent positives: numbness, Pertinent negatives: headache, nausea, vomiting. Severity of symptoms: Pain is currently a 0 / 10. Patient's baseline: Neuro: alert and fully oriented, Motor: no deficits, Ambulation: walks without assistance, Speech: normal, The patient has a previous history of atrial fibrillation on Eliquis . The patient has not experienced similar symptoms in the past. It is unknown whether or not the patient has recently seen a physician. Historical: - Allergies: 17:30 Iodinated Contrast Media - IV Dye; hb - Home Meds: 17:30 Eliquis oral oral [Active]; Lisinopril Oral [Active]; Metformin Oral [Active]; hb - PMHx: 17:30 Diabetes - NIDDM; Hyperlipidemia; Hypertension; PERIPHERAL NEUROPATHY; hb - Immunization history:: Adult Immunizations up to date. - Social history:: Smoking status: Patient/guardian denies using tobacco. - Ebola Screening: : No symptoms or risks identified at this time. ROS: 17:25 Constitutional: Negative for fever, chills, and weight loss, Eyes: Negative for injury, pm1 pain, redness, and discharge, ENT: Negative for injury, pain, and discharge, Neck: Negative for injury, pain, and swelling, Cardiovascular: Negative for chest pain, palpitations, and edema, Respiratory: Negative for shortness of breath, cough, wheezing, and pleuritic chest pain, Abdomen/GI: Negative for abdominal pain, nausea, vomiting, diarrhea, and constipation, Back: Negative for injury and pain, MS/Extremity: Negative for injury and deformity, Skin: Negative for injury, rash, and discoloration. 17:25 Neuro: Positive for numbness, weakness, of the left arm, Negative for headache. Exam: 17:26 Radiologist reports: Negative CT brain pm1 17:35 Constitutional: This is a well developed, well nourished patient who is awake, alert, pm1 and in no acute distress. Head/Face: Normocephalic, atraumatic. Eyes: Pupils equal round and reactive to light, extra-ocular motions intact. Lids and lashes normal. Conjunctiva and sclera are non-icteric and not injected. Cornea within normal limits. Periorbital areas with no swelling, redness, or edema. ENT: Nares patent. No nasal discharge, no septal abnormalities noted. Tympanic membranes are normal and external auditory canals are clear. Oropharynx with no redness, swelling, or masses, exudates, or evidence of obstruction, uvula midline. Mucous membranes moist. Neck: Trachea midline, no thyromegaly or masses palpated, and no cervical lymphadenopathy. Supple, full range of motion without nuchal rigidity, or vertebral point tenderness. No Meningismus. Chest/axilla: Normal chest wall appearance and motion. Nontender with no deformity. No lesions are appreciated. Cardiovascular: Irregular rate and rhythm with a normal S1 and S2. No gallops, murmurs, or rubs. No pulse deficits. Respiratory: Lungs have equal breath sounds bilaterally, clear to auscultation and percussion. No rales, rhonchi or wheezes noted. No increased work of breathing, no retractions or nasal flaring. Abdomen/GI: Soft, non-tender, with normal bowel sounds. No distension or tympany. No guarding or rebound. No evidence of tenderness throughout. Back: No spinal tenderness. No costovertebral tenderness. Full range of motion. Skin: Warm, dry with normal turgor. Normal color with no rashes, no lesions, and no evidence of cellulitis. MS/ Extremity: Pulses equal, no cyanosis. Neurovascular intact. Full, normal range of motion. 17:35 Neuro: Orientation: is normal, to person, place, time \T\ situation. Mentation: is normal, Cranial nerves: CN II- XII are normal as tested, Motor: Strength is 2/5 in the left arm, Patient unable to shrug left shoulder. Make a fist with left hand. Just raises his left arm off his left thigh. 18:25 Neuro: Patient with improvement in left arm weakness. Patient able to raise his left pm1 arm above his head and shrug his left shoulder. unable to make a fist with left hand and flex and extend left wrist . Vital Signs: 17:29 BP 186 / 129; Pulse 95; Resp 18; Temp 98.1; Pulse Ox 97% on R/A; Pain 0/10; hb 18:00 BP 159 / 119; Pulse 95; Resp 17; Pulse Ox 100% on R/A; tr5 18:24 BP 158 / 111; Pulse 90; Resp 17; Pulse Ox 98% on R/A; tr5 19:31 BP 149 / 104; Pulse 86; Resp 16; Pulse Ox 98% ; bp NIH Stroke Scale Scores: 17:20 NIHSS Score: 3 tr5 17:35 NIHSS Score: 2 pm1 MDM: 17:16 Patient medically screened. pm1 17:30 Data reviewed: vital signs. Data interpreted: Pulse oximetry: on room air is 97 %. pm1 Interpretation: normal. 17:36 Physician consultation: [facility]'s Neurologist was contacted at 17:36, regarding pm1 consult, patient's condition, Patient is not a candidate for TPA due to taking Eliquis. Discussed with Neurologist and agrees that patient should not get TPA. 17:36 ED course: Based on discussion with neurologist, patient is not intervention candidate pm1 therefore will transfer via ground EMS. 17:40 ED course: Family present: baseline uneven smile . pm1 17:51 Counseling: I had a detailed discussion with the patient and/or guardian regarding: the pm1 historical points, exam findings, and any diagnostic results supporting the discharge/admit diagnosis, radiology results, the need to transfer to another facility, [facility] does not immediately have the required specialist, Told that he was not a TP candidate due to taking Eliquis (bleeding risk).. 18:06 ED course: Patient admitted some noncompliance with his medications. Patient reports pm1 that he did not take his blood pressure medications this AM. Unable to recall the names. Patient was laid off and he has been stretching out his medications. Regarding Eliquis he took it this AM but cut the pill in half to stretch it out also. Product Info Specialist Ortiz Watkins. PCP Chang Pagan. . 08/26 17:15 Order name: Basic Metabolic Panel; Complete Time: 17:58 ss 08/26 17:15 Order name: CBC with Diff; Complete Time: 17:55 ss 08/26 17:15 Order name: Protime (+inr); Complete Time: 17:55 ss 08/26 17:15 Order name: Ptt, Activated; Complete Time: 17:55 ss 08/26 17:15 Order name: CT Stroke Brain w/o Contrast; Complete Time: 17:33 ss 08/26 17:37 Order name: Glucose, Ancillary Testing; Complete Time: 17:40 EDMS 08/26 17:15 Order name: Stroke CXR 1 View; Complete Time: 18:06 ss 08/26 17:15 Order name: EKG; Complete Time: 17:16 ss 08/26 17:15 Order name: Accucheck; Complete Time: 17:33 ss 08/26 17:15 Order name: Cardiac monitoring; Complete Time: 17:33 ss 08/26 17:15 Order name: EKG - Nurse/Tech; Complete Time: 17:33 ss 08/26 17:15 Order name: IV Saline Lock; Complete Time: 17:33 ss 08/26 17:15 Order name: Labs collected and sent; Complete Time: 17:34 ss 08/26 17:15 Order name: NPO; Complete Time: 17:34 ss 08/26 17:15 Order name: O2 Per Protocol; Complete Time: 17:34 ss 08/26 17:15 Order name: O2 Sat Monitoring; Complete Time: 17:34 ss 08/26 17:15 Order name: Stroke Swallow Screen; Complete Time: 18:01 ss Administered Medications: 18:16 Drug: Aspirin 325 mg Route: PO; tr5 19:33 Follow up: Response: No adverse reaction bp Disposition: 08/26/19 17:[address] [facility]. Diagnosis is Cerebrovascular accident. - Reason for transfer: Higher level of care. - [facility] - Condition is Stable. - Problem is new. - Symptoms have improved. NIH Stroke Scale - NIH Stroke Score Date: 08/26/2019 Time: 17:20 Total Score = 3 1a. Level of Consciousness (LOC) - 0(Alert) 1b. Level of Consciousness (LOC) (Year \T\ Age) - 0(Both) 1c. LOC Commands (Open \T\ Closes Eyes/Telemetry Technician) - 0(Both) 2. Best Gaze (Lateral Gaze Paresis) - 0(Normal) 3. Visual Field Loss - 0(No visual loss) 4. Facial Palsy - 1(Minor Paralysis) 5a. Left Arm: Motor (10-second hold) - 2(Drift, some effort against gravity) 5b. Right Arm: Motor (10-second hold) - 0(No drift) 6a. Left Leg: Motor (5-second hold - always test supine) - 0(No drift) 6b. Right Leg: Motor (5-second hold - always test supine) - 0(No drift) 7. Limb Ataxia (finger/nose \T\ heel/perera - test with eyes open) - 0(Absent) 8. Sensory Loss (pinprick arms/legs/face) - 0(Normal) 9. Best Language: Aphasia (description/naming/reading) - 0(No aphasia) 10. Dysarthria (speech clarity - read or repeat words) - 0(Normal) 11. Extinction and Inattention (visual/tactile/auditory/spatial/personal) - 0(No abnormality) Initials: tr5 NIH Stroke Scale - NIH Stroke Score Date: 08/26/2019 Time: 17:35 Total Score = 2 1a. Level of Consciousness (LOC) - 0(Alert) 1b. Level of Consciousness (LOC) (Year \T\ Age) - 0(Both) 1c. LOC Commands (Open \T\ Closes Eyes/Telemetry Technician) - 0(Both) 2. Best Gaze (Lateral Gaze Paresis) - 0(Normal) 3. Visual Field Loss - 0(No visual loss) 4. Facial Palsy - 0(Normal) 5a. Left Arm: Motor (10-second hold) - 2(Drift, some effort against gravity) 5b. Right Arm: Motor (10-second hold) - 0(No drift) 6a. Left Leg: Motor (5-second hold - always test supine) - 0(No drift) 6b. Right Leg: Motor (5-second hold - always test supine) - 0(No drift) 7. Limb Ataxia (finger/nose \T\ heel/perera - test with eyes open) - 0(Absent) 8. Sensory Loss (pinprick arms/legs/face) - 0(Normal) 9. Best Language: Aphasia (description/naming/reading) - 0(No aphasia) 10. Dysarthria (speech clarity - read or repeat words) - 0(Normal) 11. Extinction and Inattention (visual/tactile/auditory/spatial/personal) - 0(No abnormality) Initials: pm1 Addendum: 08/28/2019 07:39 Co-signature as Attending Physician, Preston Ortega MD. rn Signatures: Dispatcher [employer] EDMS Preston Ortega MD MD rn Smirch, Shelby, RN RN ss Tirso Mejia NP PROFESSIONAL SKATER pm1 Yanet Arriola RN RN Saleem Benavides RN RN bp Rodriguez, Tommie RN RN tr5 Corrections: (The following items were deleted from the chart) 08/26 19:33 17:40 08/26/2019 17:[address] [facility]. bp Diagnosis is Cerebrovascular accident. Reason for transfer: Higher level of care. Accepting physician is [facility] Hospitalist. Condition is Stable. Problem is new. Symptoms have improved. pm1 20:46 17:36 ED course: Patient not intervention candidate therefore will transfer via pm1 ground EMS. pm1
[2019-08-26 17:42] LABS: Absolute Lymphocytes (CBC) 3.1 K/uL (0.7-4.9); Basophils % 1.2 % (0-1.3); Lymphocytes % 45.1 % (15.3-44.8); MPV 9.3 fL (7.6-11.3); RBC Red Blood Cell Count 5.29 M/uL (4.33-5.43)
[2019-08-26 17:49] LABS: Protime INR 0.97
[2019-08-26 17:55] LABS: Potassium 3.8 mmol/L (3.5-5.1)
--- NOTE | 2019-08-26 18:01 | RAD REPORT ---
EXAM DESCRIPTION: Natalie Single View08/26/2019 5:48 pm CLINICAL HISTORY: Numbness/stroke protocol/cardiomegaly COMPARISON: December 2018 FINDINGS: The lungs appear clear of acute infiltrate. The heart is mildly enlarged IMPRESSION: No acute abnormalities displayed
[2019-08-26] MEDS ORDERED: ASPIRIN 325 MG TAB ONE (18:14)
[2019-08-26 19:48] VITALS: TEMP 98.1
[2019-08-26 19:51] VITALS: O2SAT 98
[2019-08-26 19:52] VITALS: BP 149/104
--- NOTE | 2019-08-27 06:13 | EKG ---
Test Date: 2019-08-26 Test Time: 17:24:54 Glass Furnace Tender: JASWANT MEASUREMENT RESULTS: Intervals: Rate: 88 LA: QRSD: 86 QT: 348 QTc: 421 Parlin: P: LA: QRS: -19 T: 43 INTERPRETIVE STATEMENTS: Atrial fibrillation with premature ventricular or aberrantly conducted complexes Possible Anterior infarct, age undetermined Abnormal ECG Compared to ECG 01/01/2019 15:20:01 Ventricular premature complex(es) now present Myocardial infarct finding still present Electronically Signed On 08-27-19 06:12:24 FAVOR MAKER by Ortiz Watkins
== END 2019-08-26 19:33 | disposition short-term general hospital (02) ==
LOC: ER 17:11
DX: I63.9 Cerebral infarction, unspecified (principal); I10 Essential (primary) hypertension; R29.703 NIHSS score 3; E11.9 Type 2 diabetes mellitus without complications; E78.5 Hyperlipidemia, unspecified; Z79.02 Long term (current) use of antithrombotics/antiplatelets; Z91.041 Radiographic dye allergy status
CPT/HCPCS: 36415; 70450; 71045; 80048; 82947; 85025; 85610; 85730; 93005; 99285